=== PATIENT | male | born 1980 | race Caucasian/White ===

== ENCOUNTER 2018-06-04 23:21 | Emergency (ER) | payer SELFPAY | END 2018-06-05 00:35 | disposition left against medical advice (07) | LOC: ER 23:21 | DX: G47.00 Insomnia, unspecified (principal); Z53.21 Procedure and treatment not carried out due to patient leaving prior to being seen by health care provider ==

== ENCOUNTER 2018-06-08 16:48 | Emergency (ER) | payer SELFPAY ==
[~2018-06-08] VITALS: Ht 180.3 cm; Wt 63.5 kg
[2018-06-08 17:38] VITALS: BP 125/76
[2018-06-08] MEDS ORDERED: ALBU2.5V8 INH (17:47)
[2018-06-08] MEDS ORDERED: PRED50TA PO (17:47)
--- NOTE | 2018-06-08 18:34 | PHYS DOC ---
Past Medical History Past Medical History: Bipolar, COPD Past Surgical History: Tonsillectomy Alcohol Use: None Drug Use: None Adult General Chief Complaint Chief Complaint: ASTHMA HPI HPI Patient is a 38 year old male who presents requesting a medication refill. The patient has known COPD. He does not have any medications currently for treatment. He does not have an acute attack today but he has had intermittent dyspnea that is worse with weather changes. No fever or chills. No worsening cough. No additional complaints. Review of Systems Review of Systems Constitutional: Denies fever or chills HENT: Denies nasal congestion Respiratory: Denies cough or shortness of breath Musculoskeletal: Denies back pain Integument: Denies rash Neurologic: Denies headache Endocrine: Denies polyuria All other systems were reviewed and found to be within normal limits, except as documented in this note. Physical Exam Physical Exam Constitutional: Well developed, well nourished, no acute distress, non-toxic appearance HENT: Normocephalic, atraumatic, bilateral external ears normal Eyes: PERRLA, EOMI, conjunctiva normal Neck: Normal range of motion, no tenderness Cardiovascular:Heart rate regular rhythm, no murmur Lungs & Thorax: Bilateral breath sounds clear to auscultation Skin: Warm, dry, no erythema, no rash Extremities: No edema Neurologic: Alert and oriented X 3 Psychologic: Affect normal Current Patient Data Vital Signs Vital Signs Date Time Temp Pulse Resp B/P (MAP) Pulse Ox O2 Delivery O2 Flow Rate FiO2 06/08/18 17:38 98.3 90 18 125/76 (92) 98 Room Air 98.3 EKG EKG [] Radiology/Procedures Radiology/Procedures [] Course & Med Decision Making Course & Med Decision Making Pertinent Labs and Imaging studies reviewed. (See chart for details) Patient was evaluated in the emergency department only for a medication refill. His lungs are clear. He has a poor social situation and will not likely be to afford albuterol. Because of this, he is given some prescription for prednisone burst therapy to use when he does have exacerbation. He is advised to come back to the ER if he needs treatments acutely. Today however he does not need a treatment acutely. Dragon Disclaimer Dragon Disclaimer This electronic medical record was generated, in whole or in part, using a voice recognition dictation system. Departure Departure Impression: Primary Impression: Medication refill Additional Impression: COPD (chronic obstructive pulmonary disease) Disposition: 01 HOME, SELF-CARE Condition: GOOD Patient Instructions: Chronic Obstructive Pulmonary Disease Exacerbation, Easy- to-Read Scripts Prednisone (PREDNISONE) 50 Mg Tablet 50 MG PO DAILY for 5 Days, #5 TAB 2 Refills Prov: ARCELIA LY DO 06/08/18 Albuterol Sulfate (PROAIR HFA INHALER) 8.5 Gm Hfa.aer.ad 2 PUFF INH PRN Q6HRS PRN for SHORTNESS OF BREATH, #1 INHALER 3 Refills Prov: ARCELIA LY DO 06/08/18 Problem Qualifiers ARCELIA LY DO Jun 08, 2018 18:34
== END 2018-06-08 18:34 | disposition home or self-care (01) ==
LOC: ER 16:48
DX: J44.9 Chronic obstructive pulmonary disease, unspecified (principal); Z76.0 Encounter for issue of repeat prescription; Z90.49 Acquired absence of other specified parts of digestive tract
CPT/HCPCS: 99283

== ENCOUNTER 2018-06-13 18:00 | Emergency (ER) | payer MEDICAID ==
[~2018-06-13] VITALS: Ht 180.3 cm; Wt 63.5 kg
[~2018-06-13 18:00] MED LIST: ALBU2.5V8 INH; PRED50TA PO
[2018-06-13 18:20] VITALS: BP 130/66
[2018-06-13] MEDS ORDERED: predniSONE 10 MG TABLET PO ONE (18:30)
[2018-06-13] MEDS ORDERED: guaiFENesin DM 200MG/20MG 10 ML SYRUP PO ONE (18:30)
[2018-06-13] MEDS ORDERED: IPRATRPIUM/ALBUTEROL 0.5/2.5MG 3 ML NEBU. NEB ONE (18:30)
--- NOTE | 2018-06-13 19:01 | PHYS DOC ---
Past Medical History Past Medical History: Bipolar, COPD Past Surgical History: Tonsillectomy Alcohol Use: None Drug Use: None Adult General Chief Complaint Chief Complaint: COUGH HPI HPI Patient is a 38 year old [f__sex] who presents with [] Review of Systems Review of Systems Constitutional: Denies fever or chills [] Eyes: Denies change in visual acuity, redness, or eye pain [] HENT: Denies nasal congestion or sore throat [] Respiratory: Denies cough or shortness of breath [] Cardiovascular: No additional information not addressed in HPI [] GI: Denies abdominal pain, nausea, vomiting, bloody stools or diarrhea [] : Denies dysuria or hematuria [] Musculoskeletal: Denies back pain or joint pain [] Integument: Denies rash or skin lesions [] Neurologic: Denies headache, focal weakness or sensory changes [] Endocrine: Denies polyuria or polydipsia [] All other systems were reviewed and found to be within normal limits, except as documented in this note. Current Medications Current Medications Current Medications Medications (Trade) Dose Ordered Sig/Leila Start Time Stop Time Status Last Admin Dose Admin Albuterol/ Ipratropium (Duoneb) 3 ml 1X ONCE 06/13/18 18:30 1218 18:31 DC 06/13/18 18:49 3 ML Guaifenesin (Robitussin Dm) 10 ml 1X ONCE 18 18:30 1218 18:31 DC Prednisone (Prednisone) 50 mg 1X ONCE 18 18:30 1218 18:31 DC 06/13/18 18:36 50 MG Allergies Allergies Allergies Coded Allergies Type Severity Reaction Last Updated Verified No Known Drug Allergies 06/13/18 No Physical Exam Physical Exam Constitutional: Well developed, well nourished, no acute distress, non-toxic appearance. [] HENT: Normocephalic, atraumatic, bilateral external ears normal, oropharynx moist, no oral exudates, nose normal. [] Eyes: PERRLA, EOMI, conjunctiva normal, no discharge. [] Neck: Normal range of motion, no tenderness, supple, no stridor. [] Cardiovascular:Heart rate regular rhythm, no murmur [] Lungs & Thorax: Bilateral breath sounds clear to auscultation [] Abdomen: Bowel sounds normal, soft, no tenderness, no masses, no pulsatile masses. [] Skin: Warm, dry, no erythema, no rash. [] Back: No tenderness, no CVA tenderness. [] Extremities: No tenderness, no cyanosis, no clubbing, ROM intact, no edema. [] Neurologic: Alert and oriented X 3, normal motor function, normal sensory function, no focal deficits noted. [] Psychologic: Affect normal, judgement normal, mood normal. [] Current Patient Data Vital Signs Vital Signs Date Time Temp Pulse Resp B/P (MAP) Pulse Ox O2 Delivery O2 Flow Rate FiO2 06/13/18 18:20 98.2 96 16 130/66 (87) 97 Room Air 98.2 EKG EKG [] Radiology/Procedures Radiology/Procedures [] Course & Med Decision Making Course & Med Decision Making Pertinent Labs and Imaging studies reviewed. (See chart for details) [] Dragon Disclaimer Dragon Disclaimer This electronic medical record was generated, in whole or in part, using a voice recognition dictation system. Departure Departure Impression: Primary Impression: Cough Additional Impression: COPD (chronic obstructive pulmonary disease) Disposition: HOME, SELF-CARE Condition: STABLE Referrals: NO PCP (PCP) Patient Instructions: Cough, Adult Additional Instructions: Fill your medications at your earliest opportunity. Follow up with your primary care provider in 3 days for a recheck or return to the emergency department if worsening. Problem Qualifiers APRIL SHOOK APRN Jun 13, 2018 19:01
== END 2018-06-13 19:00 | disposition home or self-care (01) ==
LOC: ER 18:00
DX: J44.9 Chronic obstructive pulmonary disease, unspecified (principal)
CPT/HCPCS: 94640; 99283; J7512; J7620

== ENCOUNTER 2018-07-01 21:53 | Emergency (ER) | payer MEDICARE ==
[~2018-07-01] VITALS: Ht 180.3 cm; Wt 63.5 kg
[2018-07-01 21:55] VITALS: BP 139/79
--- NOTE | 2018-07-01 23:07 | PHYS DOC ---
Past Medical History Past Medical History: Bipolar, COPD Past Surgical History: Tonsillectomy Alcohol Use: None Drug Use: None Adult General Chief Complaint Chief Complaint: MEDICATION REFILL [facility] HPI Patient is a 38 year old with history of schizoaffective disorder and bipolar who is currently homeless who is presents requesting refill on Zyprexa prescription. Patient last dose was yesterday evening. No HI/SI/hallucinations/ paranoia/delusions. No other symptoms or complaints. [] Review of Systems Review of Systems ROS as per HPI [] All other systems were reviewed and found to be within normal limits, except as documented in this note. Current Medications Current Medications Current Medications Medications (Trade) Dose Ordered Sig/Leila Start Time Stop Time Status Last Admin Dose Admin Olanzapine (ZyPREXA ZYDIS) 10 mg 1X ONCE 07/01/18 22:30 07/01/18 22:31 DC 07/01/18 22:22 10 MG Allergies Allergies Allergies Coded Allergies Type Severity Reaction Last Updated Verified No Known Drug Allergies 06/13/18 No Physical Exam Physical Exam Constitutional: Well developed, well nourished, no acute distress, non-toxic appearance. [] HENT: Normocephalic, atraumatic, bilateral external ears normal, oropharynx moist, nose normal. [] Eyes: PERRLA, EOMI, conjunctiva normal. [] Neck: Normal range of motion, no tenderness. [] Cardiovascular:Heart rate regular rhythm, no murmur.[] Lungs & Thorax: Bilateral breath sounds clear to auscultation.[] Abdomen: Bowel sounds normal, soft, no tenderness. [] Skin: Warm, dry. [] Back: No tenderness. [] Extremities: No tenderness. [] Neurologic: Alert and oriented X 3, normal motor function, normal sensory function, no focal deficits noted. [] Psychologic: Affect, flat. [] Current Patient Data Vital Signs Vital Signs Date Time Temp Pulse Resp B/P (MAP) Pulse Ox O2 Delivery O2 Flow Rate FiO2 07/01/18 21:55 98.1 98 18 139/79 (99) 98 Room Air 98.1 EKG EKG [] Radiology/Procedures Radiology/Procedures [] Course & Med Decision Making Course & Med Decision Making Pertinent Labs and Imaging studies reviewed. (See chart for details) [PAT support team assoc consulted. Patient transferred to [facility] for resources. ] Hilda Disclaimer Dragon Disclaimer This electronic medical record was generated, in whole or in part, using a voice recognition dictation system. Departure Departure Impression: Primary Impression: Medication refill Disposition: 01 HOME, SELF-CARE Condition: STABLE Referrals: NO PCP (PCP) Patient Instructions: Medication Refill, Emergency Department Additional Instructions: Follow up with outpatient [facility]. Take dolores as directed. TAYE MCDANIEL DO Jul 01, 2018 23:07
== END 2018-07-02 00:10 | disposition home or self-care (01) ==
LOC: ER 21:53
DX: F25.0 Schizoaffective disorder, bipolar type (principal); Z76.0 Encounter for issue of repeat prescription; J44.9 Chronic obstructive pulmonary disease, unspecified; Z90.89 Acquired absence of other organs; Z59.0 Homelessness
CPT/HCPCS: 99282; 99283

== ENCOUNTER 2018-07-06 18:44 | Emergency (ER) | payer MEDICARE ==
[~2018-07-06] VITALS: Ht 177.8 cm; Wt 65.8 kg
[2018-07-06 18:59] VITALS: BP 158/81
[2018-07-06 20:15] LABS: BASO % 0 % (0-3); EOS # 0.1 x10^3/uL (0.0-0.7); EOS % 1 % (0-3); HEMATOCRIT 38.7 % (39.0-53.0); HEMOGLOBIN 13.4 g/dL (13.0-17.5); LYMPH # 1.9 x10^3/uL (1.0-4.8); LYMPH % 18 % (24-48); MEAN CORPUSCULAR HEMOGLOBIN 33 pg (25-35); MEAN CORPUSCULAR HGB CONC 35 g/dL (31-37); MEAN CORPUSCULAR VOLUME 94 fL (79-100); MONO # 0.6 x10^3/uL (0.0-1.1); MONO % 6 % (0-9); NEUT # 7.5 x10^3uL (1.8-7.7); NEUT % 74 % (31-73); PLATELET COUNT 210 x10^3/uL (140-400); RED BLOOD COUNT 4.12 x10^6/uL (4.30-5.70); RED CELL DISTRIBUTION WIDTH 13.6 % (11.5-14.5); WHITE BLOOD COUNT 10.2 x10^3/uL (4.0-11.0)
[2018-07-06 20:23] LABS: BILIRUBIN,URINE NEGATIVE (NEG); CLARITY,URINE CLEAR; COLOR,URINE YELLOW; NITRITE,URINE NEGATIVE (NEG); PH,URINE 5.5; PROTEIN,URINE NEGATIVE (NEG-TRACE); UROBILINOGEN,URINE 0.2 mg/dL (0.2 mg/dL)
[2018-07-06 20:27] LABS: CALCIUM 8.9 mg/dL (8.5-10.1); GFR 82.8; POTASSIUM 3.8 mmol/L (3.5-5.1)
[2018-07-06 20:29] LABS: BARBITURATES NEG (NEG); BENZODIAZEPINES NEG (NEG); CANNABINOIDS NEG (NEG); COCAINE NEG (NEG); METHADONE NEG (NEG); OPIATES NEG (NEG); PHENCYCLIDINE NEG (NEG)
[2018-07-06 20:33] LABS: ALBUMIN 3.5 g/dL (3.4-5.0); DIRECT BILIRUBIN 0.2 mg/dL (0.0-0.2); MAGNESIUM 1.9 mg/dL (1.8-2.4); TOTAL BILIRUBIN 0.6 mg/dL (0.2-1.0); TOTAL PROTEIN 6.7 g/dL (6.4-8.2)
[2018-07-06 20:35] LABS: AMPHETAMINE/METHAMPHETAMINE NEG (NEG)
[2018-07-06 20:46] LABS: BACTERIA,URINE 0 /HPF (0-FEW); RBC,URINE 0 /HPF (0-2); SQUAMOUS EPITHELIAL CELL,UR OCC /LPF; WBC,URINE 0 /HPF (0-4)
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
== END 2018-07-06 22:49 | disposition home or self-care (01) ==
LOC: ER 18:44
DX: R45.851 Suicidal ideations (principal); Z72.0 Tobacco use; Z71.6 Tobacco abuse counseling; J44.9 Chronic obstructive pulmonary disease, unspecified; F31.9 Bipolar disorder, unspecified
CPT/HCPCS: 36415; 80048; 80076; 80307; 81001; 83735; 85025; 99284; G0480